=== PATIENT | male | born 1995 | race Caucasian/White ===

== ENCOUNTER 2018-05-15 06:19 | Emergency (ER) | payer OTHER ==
[~2018-05-15] VITALS: Ht 172.7 cm; Wt 59.0 kg
[~2018-05-15 06:19] MED LIST: ALBU90OI INH; AMIT10 PO; AMPDEX10CR PO; AMPDEX5 PO; Adderall 30 MG30 MG PO; Amoxicillin500 MG PO; HYDR1TAB94; IBUP600 PO; MAGIC MOUTHWASH; METPHE20 PO; METPRE4DP PO; Maxalt10 MG; Naprosyn500 MG PO; Norco 10-325 T1 EACH PO; PROC10 PO; Pepcid20 MG PO; Prednisone20 MG PO; SUMA25 PO; Veetids 500500 MG PO; Zofran Odt4 MG SL
[2018-05-15] MEDS ORDERED: KETO10 PO (09:00)
== END 2018-05-15 09:15 | disposition home or self-care (01) ==
LOC: ER 06:19
DX: S62.364A Nondisplaced fracture of neck of fourth metacarpal bone, right hand, initial encounter for closed fracture (principal); F17.200 Nicotine dependence, unspecified, uncomplicated; W22.8XXA Striking against or struck by other objects, initial encounter
CPT/HCPCS: 29125; 73130; 99283-25

== ENCOUNTER 2018-12-06 16:54 | Emergency (ER) | payer OTHER ==
[~2018-12-06] VITALS: Ht 172.7 cm; Wt 54.4 kg
[~2018-12-06 16:54] MED LIST changes: +KETO10 PO
[2018-12-06] MEDS ORDERED: MUPIROCIN1 GM TOP (17:57)
== END 2018-12-06 18:18 | disposition home or self-care (01) ==
LOC: ER 16:54
DX: T25.222A Burn of second degree of left foot, initial encounter (principal); T25.232A Burn of second degree of left toe(s) (nail), initial encounter; T31.0 Burns involving less than 10% of body surface; X11.8XXA Contact with other hot tap-water, initial encounter; Z88.8 Allergy status to other drugs, medicaments and biological substances; Z79.899 Other long term (current) drug therapy; G43.909 Migraine, unspecified, not intractable, without status migrainosus; F17.200 Nicotine dependence, unspecified, uncomplicated; Y99.0 Civilian activity done for income or pay
CPT/HCPCS: 90471; 90714; 99283-25

== ENCOUNTER 2024-11-03 19:04 | Observation (INO) | payer OTHER ==
[~2024-11-03] VITALS: Ht 170.2 cm; Wt 57.0 kg
[~2024-11-03 19:04] MED LIST changes: +MUPIROCIN1 GM TOP
[2024-11-03 19:56] LABS: BASOPHILS ABSOLUTE AUTO 0.01 K/mm3 (0.00-0.23); BASOPHILS PERCENT AUTO 0 % (0-2); EOSINOPHILS ABSOLUTE AUTO 0.02 K/mm3 (0.00-0.68); EOSINOPHILS PERCENT AUTO 0 % (0-6); IMMATURE GRAN ABSOLUTE AUTO 0.05 K/mm3 (0.00-0.10); IMMATURE GRAN PERCENT AUTO 1 % (0-1); LYMPHOCYTES ABSOLUTE AUTO 1.71 K/mm3 (0.84-5.20); LYMPHOCYTES PERCENT AUTO 16 % (21-46); MONOCYTES ABSOLUTE AUTO 0.51 K/mm3 (0.16-1.47); MONOCYTES PERCENT AUTO 5 % (4-13); Mean Corpuscular HGB Conc 23.5 g/dL (31.5-36.5); Mean Corpuscular Volume 61 fL (80-100); NEUTROPHILS ABSOLUTE AUTO 8.10 K/mm3 (1.96-9.15); NEUTROPHILS PERCENT AUTO 78 % (41-73); NRBC ABSOLUTE 0.07 K/mm3 (0.00-0.02); NRBC Auto 0.7 /100 WBC (0.0-0.2); Platelet Count 543 K/mm3 (150-400); RDW Coefficient Variation 25.0 % (11.7-14.2); RDW Standard Deviation 52.2 fL (35.1-46.3)
[2024-11-03 19:58] LABS: Hematocrit 14.9 % (37.0-53.0); Hemoglobin 3.5 g/dL (13.5-17.5)
[2024-11-03 20:06] LABS: Alanine Aminotransfer (ALT/SGP 16.0 U/L (12-78); Albumin, Blood 2.8 g/dL (3.4-5.0); Albumin/Globulin Ratio 0.6 (0.8-1.8); Anion Gap 9.0 mmol/L (3-11); Aspartate Aminotrans (AST/SGOT 18.0 U/L (12-37); Bilirubin, Total 0.3 mg/dL (0.1-1.0); Blood Urea Nitrogen 8.0 mg/dL (8-24); CO2, Blood 24.0 mmol/L (21-32); Calcium, Blood 8.0 mg/dL (8.5-10.1); Chloride, Blood 103.0 mmol/L (98-108); Creatinine, Blood 0.6 mg/dL (0.60-1.20); Globulin, Blood 4.5 g/dL (2.2-4.0); Glucose, Blood 134.0 mg/dL (70-99); Potassium, Blood 3.8 mmol/L (3.5-5.5); Sodium, Blood 132.0 mmol/L (136-145); Total Protein, Blood 7.3 g/dL (6.4-8.2)
[2024-11-03] MEDS ORDERED: NS 1,000 ML IV SCH (20:15)
[2024-11-03] MEDS ORDERED: HYDROcodone 5-APAP 325 TAB PO ONE (20:30)
[2024-11-03 21:03] LABS: IMMATURE RETIC FRACTION 25.10 % (2.3-16.0); RETIC HGB EQUIVALENT 12.50 pg (28.20-36.60); RETICULOCYTE ABSOLUTE 0.0962 M/mm3 (0.0200-0.1100); RETICULOCYTE COUNT PERCENT 4.04 % (0.50-2.50)
[2024-11-03 21:35] LABS: Ferritin, Serum 4.0 ng/mL (26-388); Total Iron Binding Capacity 280.0 ug/dL (250-450)
[2024-11-04] VITALS (14 sets, daily range): BP systolic 113–159; BP diastolic 66–85
[2024-11-04] MEDS ORDERED: Prednisone10 MG PO (00:19)
[2024-11-04] MEDS ORDERED: Metronidazole T45 GM TOP (00:19)
[2024-11-04] MEDS ORDERED: HYDROCODONE-AC1 EA19 PO (00:21)
[2024-11-04] MEDS ORDERED: NALOXONE HCL4 MG (00:21)
[2024-11-04] MEDS ORDERED: HYDROcodone 5-APAP 325 TAB PO PRN (03:10)
--- NOTE | 2024-11-04 04:23 | NUR ---
NEW ORDER NEW ORDER OBTAINED FOR CBC AND CMP AT THIS TIME FROM HOSPITALIST.
[2024-11-04 05:42] LABS: Hematocrit 20.5 % (37.0-53.0); Mean Corpuscular HGB Conc 27.8 g/dL (31.5-36.5); NRBC ABSOLUTE 0.09 K/mm3 (0.00-0.02); NRBC Auto 0.8 /100 WBC (0.0-0.2); Platelet Count 458 K/mm3 (150-400); RDW Coefficient Variation 28.1 % (11.7-14.2); RDW Standard Deviation 67.8 fL (35.1-46.3)
[2024-11-04 05:45] LABS: Mean Corpuscular Volume 69 fL (80-100)
[2024-11-04 05:49] LABS: Hemoglobin 5.7 g/dL (13.5-17.5)
[2024-11-04 06:14] LABS: Alanine Aminotransfer (ALT/SGP 13.0 U/L (12-78); Albumin, Blood 2.4 g/dL (3.4-5.0); Albumin/Globulin Ratio 0.6 (0.8-1.8); Anion Gap 9.0 mmol/L (3-11); Aspartate Aminotrans (AST/SGOT 15.0 U/L (12-37); Bilirubin, Total 0.8 mg/dL (0.1-1.0); Blood Urea Nitrogen 6.0 mg/dL (8-24); CO2, Blood 24.0 mmol/L (21-32); Calcium, Blood 8.1 mg/dL (8.5-10.1); Chloride, Blood 104.0 mmol/L (98-108); Creatinine, Blood 0.54 mg/dL (0.60-1.20); Globulin, Blood 4.1 g/dL (2.2-4.0); Glucose, Blood 80.0 mg/dL (70-99); Potassium, Blood 3.9 mmol/L (3.5-5.5); Sodium, Blood 133.0 mmol/L (136-145); Total Protein, Blood 6.5 g/dL (6.4-8.2)
[2024-11-04 06:52] LABS: BASOPHILS ABSOLUTE MAN 0.10 K/mm3 (0.00-0.23); BASOPHILS PERCENT MAN 1 % (0-2); EOSINOPHILS ABSOLUTE MAN 0.00 K/mm3 (0.00-0.68); EOSINOPHILS PERCENT MAN 0 % (0-6); LYMPHOCYTES ABSOLUTE MAN 2.68 K/mm3 (0.84-5.20); LYMPHOCYTES PERCENT MAN 25 % (21-46); MONOCYTES ABSOLUTE MAN 0.64 K/mm3 (0.16-1.47); MONOCYTES PERCENT MAN 6 % (4-13); NEUTROPHILS ABSOLUTE MAN 7.28 K/mm3 (1.96-9.15); SEG NEUTROPHILS PERCENT MAN 68 % (41-73)
[2024-11-04] MEDS ORDERED: NS 500 ML IV SCH (08:00)
[2024-11-04] MEDS ORDERED: Sod Ferric Gluc Complx/Sucrose 125 MG in NS 100 ML IV SCH (09:00)
[2024-11-04] MEDS ORDERED: Enoxaparin 40 MG/0.4 ML SYR SC SCH (09:00)
[2024-11-04] MEDS ORDERED: Naloxone HCl 0.4MG / ML 1ML Vial IV PRN (12:00)
[2024-11-04 12:33] LABS: Hematocrit 23.3 % (37.0-53.0); Hemoglobin 6.9 g/dL (13.5-17.5)
--- NOTE | 2024-11-04 18:11 | NUR ---
DISCHARGE NOTE PT ALERT, ORIENTED X4; CALM AND COOPERATIVE WITH CARE. PT ANXIOUS REGARDING HOSPITAL STAY, STATING HE HAS AN APPOINTMENT WITH PCP AT 1145 AND WOULD LIKE TO LEAVE BUT 11 AM; EDUCATED PATIENT ON NEED FOR PRBC. PT RECEIVED 2 UNITS OF PRBC TODAY. CONTINUED TO EXPRESS DESIRE FOR D/C TODAY. MD AWARE, DISCHARGE PATIENT WITH PRESCRIPTION FOR LAS CBC TOMORROW 11/05. PT REPORTS PAIN TO LLE, MEDICATED PER ORDERS, ELEVATED. TEMP TRENDING UP, MEDICATED PER ORDERS, MD AWARE. DENIES CHEST PAIN/PRESSURE, SOB, NAUSEA, DIZZINESS AND NUMB/TINGLING. TELE SINUS/SINUS TACH 90-110'S, BP STABLE. SPO2 100% ON RA, BREATHING EVEN UNALABORED, CLEAR LS T/O. ABD SOFT, NONTENDER, +BT T/O. NO EDEMA NOTED. LIMITED SKIN ASSESSMENT ALLOWED PER PATIENT. VSS. PT AND SPOUSE EDUCATED ON DISCHARGE INSTRUCTIONS, BLOOD TRANSFUSIONS, IRON TRANSFUSIONS, AND FOLLOW UP APPOINTMENTS. PT LEFT VIA HOME WHEELCHAIR WITH SPOUSE AT 1738.
== END 2024-11-04 17:38 | disposition home or self-care (01) ==
LOC: ER 19:04 → ERHOLD 19:05 → SURS 19:05
PROVIDERS: Physician Assistant; ADMIT Internal Medicine
DX: C43.72 Malignant melanoma of left lower limb, including hip (principal); C79.9 Secondary malignant neoplasm of unspecified site; D63.0 Anemia in neoplastic disease; G43.909 Migraine, unspecified, not intractable, without status migrainosus; F17.200 Nicotine dependence, unspecified, uncomplicated; Z79.899 Other long term (current) drug therapy; Z88.8 Allergy status to other drugs, medicaments and biological substances
CPT/HCPCS: 36415; 36430; 80053; 82607; 82728; 82746; 83540; 83550; 84439; 84443; 84481; 85014; 85018; 85025; 85045; 86850; 86900; 86901; 86923; 96360; 99284-25; A9270; G0378; J2916; J7030; J7040; P9016

== ENCOUNTER 2025-01-02 01:51 | Day surgery (SDC) | payer OTHER ==
[~2025-01-02 01:51] MED LIST changes: +HYDROCODONE-AC1 EA19 PO; +Metronidazole T45 GM TOP; +NALOXONE HCL4 MG; +Prednisone10 MG PO
[2025-01-02] MEDS ORDERED: NS 250 ML IV SCH (06:45)
[2025-01-02 07:39] VITALS: BP 117/72; BP 179/72
[2025-01-02 08:05] VITALS: BP 101/59
[2025-01-02 09:05] VITALS: BP 118/60
[2025-01-02 09:55] VITALS: BP 103/62
[2025-01-02 10:17] VITALS: BP 104/59
[2025-01-02 11:39] VITALS: BP 105/72
== END 2025-01-02 11:45 | disposition home or self-care (01) ==
LOC: ATC 01:51
DX: D50.0 Iron deficiency anemia secondary to blood loss (chronic) (principal); C43.72 Malignant melanoma of left lower limb, including hip; C79.51 Secondary malignant neoplasm of bone; C78.00 Secondary malignant neoplasm of unspecified lung; L27.0 Generalized skin eruption due to drugs and medicaments taken internally; T50.905A Adverse effect of unspecified drugs, medicaments and biological substances, initial encounter; R53.0 Neoplastic (malignant) related fatigue; G89.3 Neoplasm related pain (acute) (chronic); C77.4 Secondary and unspecified malignant neoplasm of inguinal and lower limb lymph nodes; F17.210 Nicotine dependence, cigarettes, uncomplicated; Z79.52 Long term (current) use of systemic steroids; Z79.899 Other long term (current) drug therapy
CPT/HCPCS: 36415; 36430; 86850; 86900; 86901; 86923; J7050; P9016